=== PATIENT | female | born 1980 | race Caucasian/White ===

== ENCOUNTER 2016-07-18 07:12 | Day surgery (SDC) | payer OTHER ==
[2016-07-18] VITALS (12 sets, daily range): BP systolic 139–186; BP diastolic 73–94; PULSE 70–80; RESP 10–18; Ht 167.6 cm; Wt 55.0 kg
[~2016-07-18] VITALS: Ht 167.6 cm; Wt 55.0 kg
[~2016-07-18 07:12] MED LIST: ACET325T33 PO; APIX5TAB PO; ASPI-664 PO; BISA5TAB6 PO; GABA100C14 PO; HYDR-3498 PO; HYDR-3672 PO; HYDR200T39 PO; METO-429 PO; OMEP20CA16 PO; PREDNISONE PO
--- NOTE | 2016-07-18 07:16 | HPN ---
Date/Time of Note Date/Time of Note DATE: 07/18/16 TIME: 07:15 Interval H&P Admission Note Pt. seen H&P reviewed: No system changes ANDI NOVA MD Jul 18, 2016 07:15
[2016-07-18 08:55] LABS: ADD SCAN DIFF NO
[2016-07-18 08:58] LABS: BASOPHIL # 0.1 10^3/ul (0.0-0.1); BASOPHILS % 1.4 % (0.0-2.0); EOSINOPHILS # 0.2 10^3/ul (0.0-0.5); EOSINOPHILS % 3.2 % (0.0-7.0); HEMATOCRIT 35.8 % (37.0-47.0); LYMPHOCYTES # 1.4 10^3/ul (0.8-2.9); LYMPHOCYTES % 20.9 % (15.0-51.0); MEAN CORPUSCULAR HEMOGLOBIN 26.3 pg (29.0-33.0); MEAN CORPUSCULAR HGB CONC 30.7 g/dl (32.0-37.0); MEAN CORPUSCULAR VOLUME 85.6 fl (82.0-101.0); MEAN PLATELET VOLUME 12.7 fl (7.4-10.4); MONOCYTE # 0.8 10^3/ul (0.3-0.9); MONOCYTES % 12.4 % (0.0-11.0); NEUTROPHILS % 61.8 % (39.0-77.0); PLATELET COUNT 226 10^3/UL (140-415); RED BLOOD COUNT 4.18 10^6/ul (4.20-5.40); RED CELL DISTRIBUTION WIDTH 15.9 % (11.5-14.5); WHITE BLOOD COUNT 6.5 10^3/ul (4.8-10.8)
[2016-07-18 09:01] LABS: ALBUMIN 4.3 g/dl (3.3-4.9)
[2016-07-18 09:04] LABS: BILIRUBIN,INDIRECT 0.1 mg/dl (0-1.1); BILIRUBIN,TOTAL 0.1 mg/dl (0.2-1.3)
[2016-07-18 09:05] LABS: ALBUMIN/GLOBULIN RATIO 1.22; POTASSIUM 4.6 mmol/L (3.5-5.1); TOTAL PROTEIN 7.8 g/dl (6.1-8.1)
[2016-07-18 09:07] LABS: INR 0.96; PROTIME 12.8 Sec (12.2-14.2)
[2016-07-18 09:08] LABS: CREATININE 5.44 mg/dl (0.44-1.00)
[2016-07-18] MEDS ORDERED: PROPOFOL 20 ML ONE (09:53)
[2016-07-18] MEDS ORDERED: GLYCOPYRROLATE 0.4 MG INJ ONE (09:53)
[2016-07-18] MEDS ORDERED: ROCURONIUM 50 MG INJ ONE (09:53)
[2016-07-18] MEDS ORDERED: MIDAZOLAM 1 MG/ML 2 ML INJ ONE (09:53)
[2016-07-18] MEDS ORDERED: ONDANSETRON 4 MG INJ ONE (09:53)
[2016-07-18] MEDS ORDERED: ROPIVACAINE 0.5 % 30 ML VIAL ONE (09:53)
[2016-07-18] MEDS ORDERED: FENTAnyl 50 MCG/ML VIAL ONE (09:53)
[2016-07-18] MEDS ORDERED: CEFAZOLIN 1 GM INJ ONE ×2 (09:53→11:24)
[2016-07-18] MEDS ORDERED: NEOSTIGMINE 3 MG/3 ML SYRINGE ONE (09:53)
[2016-07-18] MEDS ORDERED: DEXAMETHASONE 4 MG/ML 1 ML INJ ONE (09:54)
[2016-07-18] MEDS ORDERED: THROMBIN 5000 UNIT VIAL ONE (10:46)
[2016-07-18] MEDS ORDERED: LIDOCAINE 1% (MPF) 30 ML INJ ONE (10:46)
[2016-07-18] MEDS ORDERED: GELATIN SIZE 100 SPONGE ONE (10:46)
[2016-07-18] MEDS ORDERED: HEPARIN 1000 UNITS/ML 10 ML INJ ONE (10:46)
[2016-07-18] MEDS ORDERED: EPHEDrine SULFATE 50 MG/5 ML SYG IV PRN (12:00)
[2016-07-18] MEDS ORDERED: LABETALOL HCL 20MG INJ IV PRN (12:00)
[2016-07-18] MEDS ORDERED: TRIMETHOBENZAMIDE 100 MG/ML VIAL IM PRN (12:00)
[2016-07-18] MEDS ORDERED: ONDANSETRON 4 MG INJ IV PRN (12:00)
[2016-07-18] MEDS ORDERED: MIDAZOLAM 1 MG/ML 2 ML INJ IV PRN (12:00)
[2016-07-18] MEDS ORDERED: HYDROmorphONE (0.2 MG/ML) 10ML SYG IV PRN ×3 (12:00)
[2016-07-18] MEDS ORDERED: DIPHENHYDRAMINE 50 MG INJ IV PRN (12:00)
[2016-07-18] MEDS ORDERED: FENTAnyl 50 MCG/ML VIAL IV PRN ×3 (12:00)
[2016-07-18] MEDS ORDERED: hydrALAzine 20 MG INJ IV PRN (12:00)
[2016-07-18] MEDS ORDERED: THROMBIN 5000 UNIT VIAL TOP ONE (12:01)
--- NOTE | 2016-07-18 13:34 | OPR ---
DATE OF OPERATION: 07/18/2016 PREOPERATIVE DIAGNOSIS: End-stage renal disease with first stage brachiobasilic arteriovenous fistu la. POSTOPERATIVE DIAGNOSIS: End-stage renal disease with a first stage brachiobasilic arteriovenous fi stula. PROCEDURE PERFORMED: Left arm basilic vein transposition, it is a super fistulization of the vein. DESCRIPTION OF PROCEDURE: The patient was brought to the operating room, placed on the table in sup ine position. Left arm was prepped and draped in the usual sterile fashion. I began by making 2 in cisions in the upper arm between the elbow and the axilla over the basilic vein and dissected down t hrough the subcutaneous tissue using electrocautery, identified the basilic vein and distally skelet onized it from the arterial anastomosis at the elbow all the way up into the axilla, ligated all the side branches of the vein with 3-0 or 2-0 silk ties and divided them. It was a very good vein, good caliber along its entire length. There was good thrill. Once I had the vein fully skeletonized I then clamped it just past the arterial anastomosis at the elbow. I then transected the vein several centimeters distal in an oblique fashion. I then tunneled the vein very superficially right under the skin using a long aortic clamp and marked the anterior surface to make sure I did not twist it a nywhere when I brought it through the tunnel I then reanastomosed two ends of the vein, using 6-0 Pr olene suture in a running standard vascular surgical fashion. I removed the clamps. There was a st jennie thrill in the fistula. The vein was easily palpable and accessible where it ran over the bicep s. There was good hemostasis. I closed the skin incisions in 2 layers using an inner layer of 3-0 Vicryl and an outer layer of 4-0 Monocryl subcuticular sutures. Sterile dressings were applied. Th e patient was extubated in the operating room and transferred to the recovery room in stable conditi on. She tolerated the procedure well without any complications. Dictated By: ANDI SANDY/[place]O Conf#: [id number] DID#: [id number] CC: JORDANA SEBASTIAN MD;*EndCC*
--- NOTE | 2016-07-18 14:46 | RADRPT ---
Vent Rate: 72 bpm RR Interval: 0 msec SD Interval: 146 msec QRS Duration: 72 msec QT Interval: 414 msec QTC Interval: 453 msec P-R-T Golden: 81 - 81 - 81 degrees Normal sinus rhythm Normal ECG Electronically Signed By: Cholo Paula [id number]
== END 2016-07-18 15:35 | disposition home or self-care (01) ==
LOC: SDS 07:12
PROVIDERS: ATTEND Surgery Vascular Surgery
DX: I12.0 Hypertensive chronic kidney disease with stage 5 chronic kidney disease or end stage renal disease (principal); N18.6 End stage renal disease
CPT/HCPCS: 36821; 80053; 84703; 85025; 85610; 85730; 93005; J0360; J0690; J1100; J1644; J2250; J2405; J2795; J3010; Z7512; Z7610; C1725; J2710

== ENCOUNTER 2017-04-24 11:18 | Day surgery (SDC) | payer OTHER ==
[~2017-04-24] VITALS: Ht 167.6 cm; Wt 53.0 kg
[~2017-04-24 11:18] MED LIST changes: -BISA5TAB6 PO
[2017-04-24 12:06] VITALS: Ht 167.6 cm; Wt 53.0 kg
[2017-04-24 12:10] VITALS: BP 99/54; PULSE 93; RESP 18
[2017-04-24] MEDS ORDERED: IODIXANOL LOCM 100 ML BTL ONE ×2 (13:01→13:20)
[2017-04-24] MEDS ORDERED: LIDOCAINE 1% (MDV) 20 ML INJ ONE (13:01)
[2017-04-24] MEDS ORDERED: FENTAnyl 50 MCG/ML VIAL ONE (13:12)
[2017-04-24] MEDS ORDERED: MIDAZOLAM 1 MG/ML 2 ML INJ ONE (13:12)
[2017-04-24 13:45] VITALS: BP 121/81; PULSE 71; RESP 18
--- NOTE | 2017-04-24 15:25 | SIPON ---
Date/Time of Note Date/Time of Note DATE: 04/24/17 TIME: 15:24 Operative Report Preoperative Diagnosis L arm AVF malfunction Postoperative Diagnosis same Operation/Procedure Performed L arm AVF gram, PTV basilic vein stenosis (>75% ot 0%) (8x40mm to 20 tila) Surgeon see signature line assistant health educator none Anesthesia: other Estimated blood loss: none Transfusion Required none Specimen none Grafts/Implants none Complications none ANDI NOVA MD Apr 24, 2017 15:25
--- NOTE | 2017-04-25 03:16 | OPR ---
DATE OF OPERATION: 04/24/2017 PREOPERATIVE DIAGNOSIS: End-stage renal disease with malfunctioning left arm arteriovenous fistula. POSTOPERATIVE DIAGNOSIS: End-stage renal disease with malfunctioning left arm arteriovenous fistula . PROCEDURE PERFORMED: Left arm arteriovenous fistulogram with percutaneous venoplasty of the upper a rm basilic vein. SURGEON: Andi Nova MD ANESTHESIA: Local anesthesia. ESTIMATED BLOOD LOSS: Minimal. COMPLICATIONS: No intraprocedural complications. INDICATIONS: This is a 36-year-old woman with diabetes, hypertension, end-stage renal disease. She has a left arm brachiobasilic AV fistula. She had a previous failed left arm brachiocephalic fistu la. The fistula has been functional but it has become very pulsatile and there is high pressures wi th dialysis. I brought her in today for fistulogram. DESCRIPTION OF PROCEDURE: The patient was brought to the warehouse general laborer and placed on the table in supine position. The left arm was prepped and draped in the usual sterile fashion. I began by infiltrati ng over the fistula just above the elbow using 5 mL of 1% Xylocaine. I used a micropuncture needle to enter the vein. I then advanced an 0.018 wire through the needle into the vein and then a microp uncture sheath over the wire into the iliac vein; I did an AV fistulogram, this identified the AV fi stula is widely patent at the arterial anastomosis and then in the distal portion and then at the up per arm there is a greater than 75% stenosis its focal. Then above that, the vein is good caliber. The central veins were all widely patent with no central stenosis. So decided to treat this severe stenosis in the upper arm; I advanced a Glidewire through the microp uncture sheath and up into the central veins. I exchanged the micropuncture sheath for a 6-Lao s sarah over the wire and then used an 8 mm x 40 balloon inflated to 20 atmospheres to dilate the bel re stenosis. You could see a fairly tight waist that eventually get out after venoplasty, but had an injection showed the fistula now was widely patent. There was a real soft thrill where was very pulsatile prior. There was no extravasation. I was happy with the result. I removed all the catheter sheaths and wires and held pressure on the puncture site until there was good hemostasis. He tolerated the procedure well without any complication and was discharged home. Dictated By: ANDI SANDY/[place] Conf#: [id number] DID#: [id number] CC: ANDI NOVA MD;*End*
== END 2017-04-24 14:15 | disposition home or self-care (01) ==
LOC: SDS 11:18
PROVIDERS: ATTEND Surgery Vascular Surgery
DX: I12.0 Hypertensive chronic kidney disease with stage 5 chronic kidney disease or end stage renal disease (principal); N18.6 End stage renal disease
CPT/HCPCS: 36901; 36907; 84132; 84703; C1725; C1894; J1644; J2250; J3010; Q9967; Z7610

== ENCOUNTER 2018-12-24 10:05 | Day surgery (SDC) | payer OTHER ==
[~2018-12-24] VITALS: Ht 167.6 cm; Wt 71.0 kg
[~2018-12-24 10:05] MED LIST changes: -ASPI-664 PO; +ASPI-817 PO; +ATOR40TA68 PO; -HYDR-3498 PO; +HYDR-3601 PO; +PRED5TAB PO
[2018-12-24 11:06] VITALS: BP 130/80; PULSE 65; RESP 18; Ht 167.6 cm; Wt 71.0 kg
[2018-12-24] MEDS ORDERED: SOD CHLORIDE 0.9% 1,000 ML IV SCH (11:30)
[2018-12-24] MEDS ORDERED: LIDOCAINE 1% (MDV) 20 ML INJ ONE (12:01)
[2018-12-24] MEDS ORDERED: FENTAnyl 50 MCG/ML VIAL ONE (12:01)
[2018-12-24] MEDS ORDERED: MIDAZOLAM 1 MG/ML 2 ML INJ ONE (12:01)
[2018-12-24] MEDS ORDERED: HEPARIN 1000 UNITS/NS (A-LINE) 1,000 ML ONE (12:01)
[2018-12-24] MEDS ORDERED: IODIXANOL LOCM 100 ML BTL ONE (12:02)
[2018-12-24 12:48] VITALS: BP 142/76; PULSE 60; RESP 18
--- NOTE | 2018-12-24 16:59 | OPR ---
DATE OF OPERATION: 12/24/2018 PREOPERATIVE DIAGNOSIS: Left arm pain and swelling. POSTOPERATIVE DIAGNOSIS: Left arm pain and swelling. PROCEDURE PERFORMED: Left arm arteriovenous fistulogram with percutaneous venoplasty of upper arm ba silic vein. SURGEON: Andi Garcia MD ANESTHESIA: Local anesthesia. ESTIMATED BLOOD LOSS: Minimal. COMPLICATIONS: There were no intraprocedural complications. INDICATIONS: This is a 38-year-old woman with end-stage renal disease who has been on dialysis for s everal years. She has a left arm brachiobasilic AV fistula; it has been working okay, but she is com plaining of pain in the upper arm. 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 I brought her in today for a fistulogram and possible intervention. PROCEDURE: The patient was brought to the laborer pole crew, placed on the table in the supine position. The left arm was prepped and draped in the usual sterile fashion. I then began by infiltrating over the fistula in the mid upper arm using about 5 mL of 1% Xylocaine. Using micropuncture needle to enter the fistula and under manual guidance, I then advanced an 0.018 wire through the needle into the fist hi and then a micropuncture sheath was placed over the wire into the fistula. I did a fistulogram w ith compression views that showed the fistula is patent. The central veins were widely patent. Ther e is about a 75% to 80% stenosis in the basilic vein in the upper arm just below axilla. The proxima l portion of the fistula is widely patent. There is no stenosis at the arterial anastomosis, so I de cided to treat the stenosis in the basilic vein. I advanced a Glidewire through the micropuncture sh eath up into the central veins. I exchanged the micropuncture sheath for a 6-Bulgarian sheath over the wire. I then used a 10 x 40 balloon. We inflated it to 12 atmospheres. There is still a little bit of a waist, but for the most part it fully inflated. Then, completion venogram showed there is no s ignificant residual stenosis, less than 20%. There is a good thrill in the fistula. I was happy wit h the result. I used a 4-0 Monocryl pursestring suture to close the puncture site in the skin and wi th good hemostasis, sterile dressing was applied. She was transferred back to same day in stable con dition. She can be discharged home. Fistula is ready to use. Dictated By: ANDI SANDY/[place] Conf#: [id number] DID#: [id number]
== END 2018-12-24 13:21 | disposition home or self-care (01) ==
LOC: SDS 10:05
PROVIDERS: ATTEND Surgery Vascular Surgery
DX: T82.848D Pain due to vascular prosthetic devices, implants and grafts, subsequent encounter (principal); Y84.1 Kidney dialysis as the cause of abnormal reaction of the patient, or of later complication, without mention of misadventure at the time of the procedure; I12.0 Hypertensive chronic kidney disease with stage 5 chronic kidney disease or end stage renal disease; N18.6 End stage renal disease; E11.9 Type 2 diabetes mellitus without complications
CPT/HCPCS: 36902; 80053; 84703; 85025; 85610; 85730; C1894; J1644; J2250; J3010; Q9967; Z7610